=== PATIENT | female | born 1985 | race Two or more races ===

== ENCOUNTER 2019-06-04 19:01 | Emergency (ER) | payer OTHER ==
[~2019-06-04] VITALS: Ht 162.6 cm; Wt 114.0 kg
[2019-06-04 21:41] VITALS: BP 178/105
== END 2019-06-04 22:06 | disposition home or self-care (01) ==
LOC: ED 20:53
DX: R07.9 Chest pain, unspecified (principal); R53.83 Other fatigue; I10 Essential (primary) hypertension; R06.02 Shortness of breath; R51 Headache
CPT/HCPCS: 36415; 71045; 80053; 81003; 84439; 84443; 84484; 84703; 85025; 93005; 99284